=== PATIENT | male | born 1980 | race Hispanic/Latino ===

== ENCOUNTER 2016-10-16 23:21 | Emergency (ER) | payer SELFPAY ==
[2016-10-16 23:28] VITALS: BP 110/72; PULSE 73; RESP 18; TEMP 98; O2SAT 99
[2016-10-16] MEDS ORDERED: Lidocaine 1% Inj (20ml) ONE (23:33)
[2016-10-16] MEDS ORDERED: TDAP Vaccine 0.5 mL Syr IM ONE (23:35)
--- NOTE | 2016-10-17 00:29 | ED PDOC ---
Upper Extremity Pain/Injury Chief Complaint (Provider): laceration proximal to 5th MCP joint History Per: Patient History/Exam Limitations: no limitations Onset/Duration Of Symptoms: Mins Current Symptoms Are (Timing): Still Present Severity: Mild Pain Scale Rating Of: 4 Hands/Wrist (Pic): 1 - Tenderness (laceration) Exacerbating Factor(s): Movement Additional History Per: Patient Additional Complaint(s): 36 y/o healthy male presenting with right laceration proximal to 5th MCP joint, incurred while taking out the garbage. Denies parasthesias, numbness or difficulty moving right 5th digit distal to the laceration. Does not remember last tetanus shot, > 10 years ago. No allergies to medications <Arsh Herrera F - Last Filed: 10/17/16 01:13> <Dominic Nova - Last Filed: 10/17/16 01:30> Time Seen by Provider: 10/16/16 23:23 Chief Complaint (Nursing): Abnormal Skin Integrity Supervising Attending Note - Supervising Attending Note The Documented history was done by the: Physician Employment Officer, Attending Physician The documented physical exam was done by the: Physician Employment Officer, Attending Physician The documented procedures were done by the: Physician Employment Officer, Attending Physician - Attestation: I have personally seen and examined this patient.: Yes I have fully participated in the care of the patient.: Yes I have reviewed all pertinent clinical information: Yes <Dominic Nova - Last Filed: 10/17/16 01:30> Past Medical History Vital Signs: Last Vital Signs Temp 98 F 10/16/16 23:23 Pulse 73 10/16/16 23:23 Resp 18 10/16/16 23:23 BP 110/72 10/16/16 23:23 Pulse Ox 99 10/16/16 23:23 - Medical History PMH: Anxiety - Family History Family History: States: Unknown Family Hx <Arsh Herrera - Last Filed: 10/17/16 01:13> Vital Signs: Last Vital Signs Temp 98 F 10/16/16 23:23 Pulse 73 10/16/16 23:23 Resp 18 10/16/16 23:23 BP 110/72 10/16/16 23:23 Pulse Ox 99 10/17/16 01:18 <Dominic Nova - Last Filed: 10/17/16 01:30> - Home Medications Home Medications: Ambulatory Orders Medication Instructions Recorded No Known Home Med 10/16/16 - Allergies Allergies/Adverse Reactions: Allergies Allergy/AdvReac Type Severity Reaction Status Date / Time No Known Allergies Allergy Verified 10/16/16 23:50 Review of Systems Constitutional: Negative for: Fever, Chills, Sweats, Weakness Cardiovascular: Negative for: Chest Pain Respiratory: Negative for: Cough, Shortness of Breath Gastrointestinal: Negative for: Nausea, Vomiting Musculoskeletal: Positive for: Hand Pain Skin: Negative for: Rash Neurological: Negative for: Weakness, Numbness <Arsh Herrera - Last Filed: 10/17/16 01:13> Physical Exam - Physical Exam Appears: Positive for: No Acute Distress Skin: Positive for: Normal Color, Warm Cardiovascular/Chest: Positive for: Regular Rate, Rhythm Respiratory: Positive for: Normal Breath Sounds Gastrointestinal/Abdominal: Positive for: Normal Exam, Soft. Negative for: Tenderness <Arsh Herrera - Last Filed: 10/17/16 01:13> - ECG O2 Sat by Pulse Oximetry: 99 <Arsh Herrera - Last Filed: 10/17/16 01:13> Procedures - Laceration/Wound Repair Right Proximal Hand Wound Length (cm): 4 Wound's Depth, Shape: superficial, irregular Wound Explored: clean Irrigated w/ Saline (ccs): 50 Anesthesia: 1% Lidocaine Volume Anesthetic (ccs): 3 Wound Debrided: minimal Wound Repaired With: Sutures Suture Size/Type: 4:0, nylon Number of Sutures: 5 Layer Closure?: No Wound Complexity: Simple Sterile Dressing Applied?: No (bacitracin and gauze) Splint Applied?: No <Arsh Herrera - Last Filed: 10/17/16 01:13> Disposition - Disposition Disposition: Routine/Home Disposition Time: 01:18 <Arsh Herrera - Last Filed: 10/17/16 01:13> <Dominic Nova A - Last Filed: 10/17/16 01:30> - Clinical Impression Clinical Impression: Hand laceration - Disposition Referrals: Jer Cabello MD [Medical Doctor] - Condition: GOOD Additional Instructions: Return for suture removal or see your PCP in 10 days. Keep wound clean. Use bacitracin on the wound. Shower is allowed. Instructions: Care For Your Stitches (ED), Laceration (ED)
== END 2016-10-17 00:25 | disposition home or self-care (01) ==
LOC: H.ER 23:21
DX: S61.216A Laceration without foreign body of right little finger without damage to nail, initial encounter (principal); W26.8XXA Contact with other sharp object(s), not elsewhere classified, initial encounter; Y92.008 Other place in unspecified non-institutional (private) residence as the place of occurrence of the external cause